=== PATIENT | female | born 1990 | race Caucasian/White ===

== ENCOUNTER 2017-04-17 00:28 | Inpatient (IN) | payer SELFPAY ==
[2017-04-17] VITALS (8 sets, daily range): BP systolic 107–126; BP diastolic 59–68; PULSE 70–95; RESP 18–20; TEMP 98.1–98.9; O2SAT 20–100
[~2017-04-17] VITALS: Ht 170.2 cm; Wt 73.0 kg
[~2017-04-17 00:28] MED LIST: Z.0.NO CURRENT MEDS
[2017-04-17] MEDS ORDERED: PROCHLORPERAZINE INJ 10 MG/2 ML VIAL IV PUSH ONE (00:45)
[2017-04-17] MEDS ORDERED: SODIUM CHLORIDE 0.9% FLUSH 10 ML FLUSH IVF PRN (00:45)
[2017-04-17] MEDS ORDERED: diphenhydrAMINE HCL 50 MG/ML VIAL IV PUSH ONE (00:45)
--- NOTE | 2017-04-17 00:50 | PD ---
HPI Chief Complaint: Syncope/Near-Syncope Time Seen by Provider: 00:34 Travel History International Travel<30 days: No Contact w/Intl Traveler<30days: No Traveled to known affect area: No History of Present Illness HPI patient is a 26-year-old female who identifies is male presents emergency department for evaluation of right ear pain. Patient apparently has been having ear pain and headache for the past 2-3 days, this caused her to become dizzy and fall tonight impacting her right side of her head and having loss of consciousness. No chest pain or shortness of breath, denies his mentation of the right ear, denies any cough congestion runny nose. PFSH Past Medical History Autoimmune Disease: No Blood Disorders: No Cardiovascular Problems: No Diminished Hearing: No Genitourinary: No Headaches: No Musculoskeletal: Yes Neurologic: No Respiratory: No Migraines: No Seizures: No Sickle Cell Disease: No ?: Unknown LMP: "Couple months ago" Past Surgical History Abdominal Surgery: No Cardiac Surgery: No Ear Surgery: No Endocrine Surgery: No Eye Surgery: No Genitourinary Surgery: No Gynecologic Surgery: No Neurologic Surgery: No Oral Surgery: No Thoracic Surgery: No Social History Alcohol Use: No Tobacco Use: Yes Substance Use: No Allergies-Medications (Allergen,Severity, Reaction): Coded Allergies: No Known Allergies (Verified Allergy, Unknown, 04/17/17) Reported Meds & Prescriptions Reported Meds & Active Scripts Active No Active Prescriptions or Reported Medications Review of Systems Except as stated in HPI: all other systems reviewed are Neg Physical Exam Narrative GENERAL: Well-developed well-nourished, appears uncomfortable but nontoxic. SKIN: Focused skin assessment warm/dry. There is contusion behind the right ear with some minimal swelling, no mastoid tenderness. HEAD: Atraumatic. Normocephalic. EYES: Pupils equal and round. No scleral icterus. No injection or drainage. ENT: No nasal bleeding or discharge. Mucous membranes pink and moist. Left TM clear, right TM does have hemotympanum. There is also some dried blood in the ear canal. NECK: Trachea midline. No JVD. CARDIOVASCULAR: Regular rate and rhythm. No murmur appreciated. RESPIRATORY: No accessory muscle use. Clear to auscultation. Breath sounds equal bilaterally. GASTROINTESTINAL: Abdomen soft, non-tender, nondistended. Hepatic and splenic margins not palpable. MUSCULOSKELETAL: No obvious deformities. No clubbing. No cyanosis. No edema. NEUROLOGICAL: Awake and alert. No obvious cranial nerve deficits. Motor grossly within normal limits. Normal speech. PSYCHIATRIC: Appropriate mood and affect; insight and judgment normal. Data Data Last Documented VS Vital Signs Date Time Temp Pulse Resp B/P (MAP) Pulse Ox O2 Delivery O2 Flow Rate FiO2 04/17/17 02:19 72 20 123/63 (83) 100 04/17/17 01:14 98.1 Orders Orders Urinalysis - C+S If Indicated (04/17/17 00:32) Ed Urine Pregnancytest Poc (04/17/17 00:32) Electrocardiogram (04/17/17 00:42) Complete Blood Count With Diff (04/17/17 00:42) Comprehensive Metabolic Panel (04/17/17 00:42) Ct Brain W/O Iv Contrast(Rout) (04/17/17 00:42) Ct Cerv Spine W/O Contrast (04/17/17 00:42) Ecg Monitoring (04/17/17 00:42) Iv Access Insert/Monitor (04/17/17 00:42) Oximetry (04/17/17 00:42) Sodium Chloride 0.9% Flush (Ns Flush) (04/17/17 00:45) Act Partial Throm Time (Ptt) (04/17/17 00:42) Prothrombin Time / Inr (Pt) (04/17/17 00:42) Diphenhydramine Inj (Benadryl Inj) (04/17/17 00:45) Prochlorperazine Inj (Compazine Inj) (04/17/17 00:45) Apply Cervical Collar (04/17/17 00:42) Ct Facial Bones W/O Iv Cont (04/17/17 ) Admit Order (Ed Use Only) (04/17/17 ) Labs Laboratory Tests Test 04/17/17 00:50 White Blood Count 12.9 TH/MM3 Red Blood Count 4.53 MIL/MM3 Hemoglobin 13.5 GM/DL Hematocrit 42.3 % Mean Corpuscular Volume 93.4 FL Mean Corpuscular Hemoglobin 29.8 PG Mean Corpuscular Hemoglobin Concent 31.9 % Red Cell Distribution Width 12.2 % Platelet Count 143 TH/MM3 Mean Platelet Volume 10.6 FL Neutrophils (%) (Auto) 86.0 % Lymphocytes (%) (Auto) 7.8 % Monocytes (%) (Auto) 5.3 % Eosinophils (%) (Auto) 0.1 % Basophils (%) (Auto) 0.8 % Neutrophils # (Auto) 11.1 TH/MM3 Lymphocytes # (Auto) 1.0 TH/MM3 Monocytes # (Auto) 0.7 TH/MM3 Eosinophils # (Auto) 0.0 TH/MM3 Basophils # (Auto) 0.1 TH/MM3 CBC Comment DIFF FINAL Differential Comment Prothrombin Time 10.6 SEC Prothromb Time International Ratio 1.0 RATIO Activated Partial Thromboplast Time 23.8 SEC Blood Urea Nitrogen 8 MG/DL Creatinine 0.76 MG/DL Random Glucose 136 MG/DL Total Protein 7.8 GM/DL Albumin 4.2 GM/DL Calcium Level 9.2 MG/DL Alkaline Phosphatase 58 U/L Aspartate Amino Transf (AST/SGOT) 16 U/L Alanine Aminotransferase (ALT/SGPT) 20 U/L Total Bilirubin 0.5 MG/DL Sodium Level 137 MEQ/L Potassium Level 3.3 MEQ/L Chloride Level 101 MEQ/L Carbon Dioxide Level 26.6 MEQ/L Anion Gap 9 MEQ/L Estimat Glomerular Filtration Rate 91 ML/MIN [facility] Medical Decision Making Medical Screen Exam Complete: Yes Emergency Medical Condition: Yes Differential Diagnosis Basilar skull fracture, mastoiditis is a possibility but seems unlikely, hemorrhagic otitis media, Narrative Course Patient was roomed in emergency department, hot history of ear pain and dizziness for the past 2-3 days prior to presentation then had a fall and possible loss of consciousness after the fall at about 2100 prior to presentation. Patient does have hemotympanum and a little dried blood in the external ear canal as well. She has a hematoma behind her right ear concerning for basilar skull fracture. Patient underwent CAT scan in of her head which did confirm a temporal bone fracture and parietal bone fracture of the skull. No intracranial abnormality observed. Radiologist also commented that there was air in the subcutaneous cutaneous tissues tracking down towards the TMJ on the right, unclear etiology, could represent open fracture but I doubt it. Patient will be started on antibiotics regardless. Patient was discussed with Dr. Dee for admission and he is agreeable. Given her neurologic status completely intact and she can go to the floor. Reexamined and patient does not have any evidence of injury to the chest abdomen pelvis or extremities. Last [address] 12/13/17 0042 Signed Impressions: Service Date/Time: Monday, April 17, 2017 01:40 - CONCLUSION: 1. No evidence of intracranial or extra-axial blood. 2. Nondisplaced fracture of the right temporal and inferior parietal bone. 3. Deep soft tissue gas tracking along the right styloid. May consider performing CT facial bones to evaluate integrity of the right mandible. 4. Opacified right sphenoid and scattered areas of mucosal thickening in the ethmoid sinuses. Tang Stein MD Cervical Spine CT 04/17/1741 Signed Impressions: Service Date/Time: Monday, April 17, 2017 01:40 - CONCLUSION: 1. No evidence of compression deformity or spondylolisthesis. 2. Deep soft tissue gas about the right mandible and styloid. May consider performing CT facial bones to evaluate integrity of the mandible. Tang Stein MD After Benadryl and Compazine the patient is feeling much better, sleeping soundly on reassessment but easily aroused. Discussed the results with her and recommended admission for neurosurgical consultation and she is agreeable. Diagnosis Primary Impression: Skull fracture Qualified Codes: S02.0XXA - Fracture of vault of skull, initial encounter for closed fracture Admitting Information Admitting Physician Requests: Admit Scripts No Active Prescriptions or Reported Meds Condition: Stable Binh Giang MD Apr 17, 2017 00:50
[2017-04-17 00:56] LABS: AUTOMATED NEUTROPHIL # 11.1 TH/MM3 (1.8-7.7); BASOPHIL # 0.1 TH/MM3 (0-0.2); BASOPHIL % 0.8 % (0.0-2.0); EOSINOPHIL % 0.1 % (0.0-4.0); HEMATOCRIT 42.3 % (35.0-46.0); LYMPH % 7.8 % (9.0-44.0); MEAN CELL VOLUME 93.4 FL (80.0-100.0); MEAN CORPUSCULAR HEMOGLOBIN 29.8 PG (27.0-34.0); MEAN CORPUSCULAR HGB CONC 31.9 % (32.0-36.0); MONO % 5.3 % (0.0-8.0); PLATELET COUNT 143 TH/MM3 (150-450); RED BLOOD COUNT 4.53 MIL/MM3 (4.00-5.30); RED CELL DISTRIBUTION WIDTH 12.2 % (11.6-17.2); WHITE BLOOD COUNT 12.9 TH/MM3 (4.0-11.0)
[2017-04-17 00:57] LABS: HEMO FLAGS DIFF FINAL
[2017-04-17 01:03] LABS: CHLORIDE 101 MEQ/L (98-107); POTASSIUM 3.3 MEQ/L (3.5-5.1); SODIUM (NA) 137 MEQ/L (136-145)
[2017-04-17 01:07] LABS: ANION GAP 9 MEQ/L (5-15); BICARBONATE 26.6 MEQ/L (21.0-32.0); BLOOD UREA NITROGEN 8 MG/DL (7-18)
[2017-04-17 01:09] LABS: APTT (PATIENT) 23.8 SEC (24.3-30.1); PROTHROMBIN TIME - PATIENT 10.6 SEC (9.8-11.6)
[2017-04-17 01:10] LABS: ALT (GPT) 20 U/L (10-53); AST (GOT) 16 U/L (15-37); GLOMERULAR FILTRATION RATE 91 ML/MIN (>89)
[2017-04-17 01:12] LABS: TOTAL BILIRUBIN ADULT 0.5 MG/DL (0.2-1.0)
[2017-04-17 01:13] LABS: ALKALINE PHOSPHATASE 58 U/L (45-117)
--- NOTE | 2017-04-17 02:39 | RADRPT ---
EXAM DATE/TIME: 04/17/2017 01:40 [facility] COMPARISON: CT CERVICAL SPINE W/O CONTRAST, April 17, 2017, 1:40. INDICATIONS : Trauma. Dizziness. Cephalgia. Syncope. Loss of consciousness. RADIATION DOSE: 56.32 CTDIvol (mGy) MEDICAL HISTORY : None SURGICAL HISTORY : None. ENCOUNTER: Initial ACUITY: 1 day PAIN SCALE: 8/10 LOCATION: Bilateral cranial TECHNIQUE: Multiple contiguous axial images were obtained of the head. Using automated exposure control and adj ustment of the mA and/or kV according to patient size, radiation dose was kept as low as reasonably a chievable to obtain optimal diagnostic quality images. DICOM format image data is available electro nically for review and comparison. FINDINGS: CEREBRUM: The ventricles are normal for age. No evidence of midline shift, mass lesion, hemorrhage or acute in farction. No extra-axial fluid collections are seen. POSTERIOR FOSSA: The cerebellum and brainstem are intact. The 4th ventricle is midline. The cerebellopontine angle i s unremarkable. EXTRACRANIAL: The visualized portion of the orbits is intact. Symmetric aeration of the mastoids. There is some s oft tissue gas which tracks along the right styloid and posterior to the mandibular condyle. There i s opacification of the right sphenoid sinus and some mild opacities in the ethmoid sinuses. SKULL: There is a nondisplaced fracture of the right parietal extends from mid convexity down into the later al right temporal bone in the middle cranial fossa. CONCLUSION: 1. No evidence of intracranial or extra-axial blood. 2. Nondisplaced fracture of the right temporal and inferior parietal bone. 3. Deep soft tissue gas tracking along the right styloid. May consider performing CT facial bones to evaluate integrity of the right mandible. 4. Opacified right sphenoid and scattered areas of mucosal thickening in the ethmoid sinuses. Tang Stein MD on April 17, 2017 at 2:27 Board Certified Radiologist. This report was verified electronically.
--- NOTE | 2017-04-17 02:42 | RADRPT ---
EXAM DATE/TIME: 04/17/2017 01:40 [facility] COMPARISON: No previous studies available for comparison. INDICATIONS : Trauma. Fall. Neck pain. RADIATION DOSE: 24.83 CTDIvol (mGy) MEDICAL HISTORY : None SURGICAL HISTORY : None. ENCOUNTER: Initial ACUITY: 1 day PAIN SCALE: 8/10 LOCATION: Bilateral neck TECHNIQUE: Volumetric scanning of the cervical spine was performed. Multiplanar reconstructions in the sagittal, coronal and oblique axial planes were performed. Using automated exposure control and adjustment o f the mA and/or kV according to patient size, radiation dose was kept as low as reasonably achievable to obtain optimal diagnostic quality images. DICOM format image data is available electronically f or review and comparison. FINDINGS: There is normal alignment of the vertebral bodies of the cervical spine. Vertebral body height is ma intained. A sterile limits or normal alignment without evidence of locked or perched facets. Atlant oaxial articulation is intact. The spinous processes are intact. There is deep soft tissue gas seen about the styloid process and medial to the body of the mandible; the mandible is incompletely included in the [id number].. C2-C3: No fracture seen. The bony neural foramina are patent. C3-C4: No fracture seen. The bony neural foramina are patent. C4-C5: No fracture seen. The bony neural foramina are patent. C5-C6: No fracture seen. The bony neural foramina are patent. C6-C7: No fracture seen. The bony neural foramina are patent. C7-T1: No fracture seen. The bony neural foramina are patent. CONCLUSION: 1. No evidence of compression deformity or spondylolisthesis. 2. Deep soft tissue gas about the right mandible and styloid. May consider performing CT facial bone s to evaluate integrity of the mandible. Tang Stein MD on April 17, 2017 at 2:38 Board Certified Radiologist. This report was verified electronically.
[2017-04-17] MEDS ORDERED: NALOXONE HCL 0.4 MG/ML AMP IV PUSH PRN (03:00)
[2017-04-17] MEDS ORDERED: ACETAMINOPHEN/HYDROcodone 325 MG/5 MG TAB PO PRN (03:00)
[2017-04-17] MEDS ORDERED: ONDANSETRON HCL 4 MG/2 ML VIAL IV PUSH PRN (03:00)
[2017-04-17] MEDS ORDERED: MORPHINE SULFATE 4 MG/ML INJ IV PUSH PRN (03:00)
[2017-04-17] MEDS ORDERED: cefTRIAXone INJ 2,000 MG in SODIUM CHLORIDE 0.9% INJ 100 ML IV ONE (03:15)
--- NOTE | 2017-04-17 03:23 | RADRPT ---
EXAM DATE/TIME: 04/17/2017 02:48 [facility] COMPARISON: No previous studies available for comparison. INDICATIONS : Trauma. Fall. Evaluate for right mandible fracture. RADIATION DOSE: 29.85 CTDIvol (mGy) MEDICAL HISTORY : None SURGICAL HISTORY : None. ENCOUNTER: Initial ACUITY: 1 day PAIN SCORE: 9/10 LOCATION: Bilateral facial TECHNIQUE: Volumetric scanning of the facial bones was performed. Using automated exposure control and adjustme nt of the mA and/or kV according to patient size, radiation dose was kept as low as reasonably achiev able to obtain optimal diagnostic quality images. DICOM format image data is available electronicall y for review and comparison. FINDINGS: There is deep soft tissue gas outlining the right lateral pterygoid muscle and tracking along the med ial body of the mandible and styloid process. The mandible is intact without evidence of fracture. The mandibular condyle is normally situated within the condylar fossa. There is opacification of the right sphenoid sinus and a few opacified ethmoid air cells. Pneumatiza tion of the middle turbinates, right larger than left. The frontals and maxillary sinuses are clear. Zygomatic arches, maxilla, nasal bone and pterygoid plates are intact. There is a nondisplaced fracture of the posterior right temporal bone in the middle cranial fossa. N o evidence of pneumocephalus. The mastoids are symmetrically aerated. CONCLUSION: 1. Right sided deep soft tissue gas outlining the lateral pterygoid muscle. No radiopaque foreign luanne dies. 2. The right mandible is intact; no fracture seen. 3. Nondisplaced right temporal bone fracture in the posterior middle cranial fossa. 4. Opacified right sphenoid and scattered opacified ethmoids. Tang Stein MD on April 17, 2017 at 3:08 Board Certified Radiologist. This report was verified electronically.
[2017-04-17] MEDS: 1/2 NS + KCL 20 MEQ INJ 1,000 ML IV SCH ×2 (04:26→14:59)
[2017-04-17 05:05] LABS: BLOOD, URINE NEG (NEG); GLUCOSE,URINE NEG (NEG); KETONE, URINE 15 mg/dL (NEG); NITRITE,URINE NEG (NEG); PH, URINE 5.5 (5.0-8.5)
[2017-04-17 05:15] LABS: URINE COLOR YELLOW (YELLW/STRAW)
[2017-04-17 05:16] LABS: MUCUS URINE MOD /lpf (OCC)
[2017-04-17 05:17] LABS: BACTERIA, URINE OCC /hpf; COMMENT (UR) CULT NOT INDICATED; CULTURE IF INDICATED CULT NOT INDICATED; WBC, URINE 0-2 /hpf (0-5)
[2017-04-17] MEDS: ACETAMINOPHEN/HYDROcodone 325 MG/10 MG TAB PO PRN ×2 (09:26→14:58)
--- NOTE | 2017-04-17 15:23 | EKG ---
Date Performed: 04/17/2017 Time Performed: 00:57:56 PTAGE: 26 years EKG: Sinus rhythm NORMAL ECG PREVIOUS TRACING : 03/14/2006 12.12 DOCTOR: Jay Jay Coon Interpretating Date/Time 04/17/2017 15:22:24
--- NOTE | 2017-04-17 15:54 | HHI.DS ---
Lauri Hayden [facility] 04/17/17 1554: Discharge Summary Admission Date Apr 17, 2017 at 02:55 Discharge Date: Apr 17, 2017 Admitting Diagnosis Skull Fracture. (1) Skull fracture Diagnosis: Principal ICD Code: S02.91XA - Unspecified fracture of skull, initial encounter for closed fracture Status: Acute (2) Otitis media Diagnosis: Secondary ICD Code: H66.90 - Otitis media, unspecified, unspecified ear CBC/BMP: 04/17/17 0050 04/17/17 0050 Significant Findings Laboratory Tests Test 04/17/17 00:50 04/17/17 04:55 White Blood Count 12.9 TH/MM3 (4.0-11.0) Mean Corpuscular Hemoglobin Concent 31.9 % (32.0-36.0) Platelet Count 143 TH/MM3 (150-450) Neutrophils (%) (Auto) 86.0 % (16.0-70.0) Lymphocytes (%) (Auto) 7.8 % (9.0-44.0) Neutrophils # (Auto) 11.1 TH/MM3 (1.8-7.7) Activated Partial Thromboplast Time 23.8 SEC (24.3-30.1) Random Glucose 136 MG/DL (74-106) Potassium Level 3.3 MEQ/L (3.5-5.1) Urine Ketones 15 mg/dL (NEG) Urine Squamous Epithelial Cells 6-8 /hpf (0-5) Urine Bacteria OCC /hpf (NONE) Urine Mucus MOD /lpf (OCC) Imaging Recent Impressions Head CT 04/17/1741 Signed Impressions: Service Date/Time: Monday, April 17, 2017 01:40 - CONCLUSION: 1. No evidence of intracranial or extra-axial blood. 2. Nondisplaced fracture of the right temporal and inferior parietal bone. 3. Deep soft tissue gas tracking along the right styloid. May consider performing CT facial bones to evaluate integrity of the right mandible. 4. Opacified right sphenoid and scattered areas of mucosal thickening in the ethmoid sinuses. Tang Stein MD Cervical Spine CT 04/17/1741 Signed Impressions: Service Date/Time: Monday, April 17, 2017 01:40 - CONCLUSION: 1. No evidence of compression deformity or spondylolisthesis. 2. Deep soft tissue gas about the right mandible and styloid. May consider performing CT facial bones to evaluate integrity of the mandible. Tang Stein MD Maxillofacial CT 04/17/17 0000 Signed Impressions: Service Date/Time: Monday, April 17, 2017 02:48 - CONCLUSION: 1. Right sided deep soft tissue gas outlining the lateral pterygoid muscle. No radiopaque foreign bodies. 2. The right mandible is intact; no fracture seen. 3. Nondisplaced right temporal bone fracture in the posterior middle cranial fossa. 4. Opacified right sphenoid and scattered opacified ethmoids. Tang Stein MD PE at Discharge GENERAL: Awake & alert, readily interacts, affect slightly flat, no apparent distress. SKIN: Warm, dry & intact w/o any evident rashes, ulceration or other lesions noted. HEENT: Normocephalic, TTP to the right post-auricular area & right superior jaw. PERRLA 3 mm brisk, EOMI. Left TM pearly werner w/o any evident drainage, Right TM w/apparent effusion and slight bulging, dried blood in canal. Nares moist & pink. MMM & pink, no oral lesions, tongue midline to protrusion. RESPIRATORY: CTAB w/o W/R/R, equal excursion, nonlaboured, on RA. CARDIOVASCULAR: S1S2 w/RRR w/o M/G/R, radial & pedal pulses 2+ bilaterally, no pedal edema. GASTROINTESTINAL: Abdomen soft, nontender, positive bowel sounds. MUSCULOSKELETAL: OH w/o difficulty, no evident deformity or clubbing. NEUROLOGICAL: AAOx3. Speech clear & appropriate. Follows simple commands w/o difficulty. CN II-XII appear grossly intact. Sensation intact to light touch to all extremities. Motor strength 5/5 to all major flexion & extension muscle groups except for the right ??? which is 4/5 chronically secondary to an old injury. Hospital Course This 26-year-old female who identifies as a male who presented to the emergency department early this morning for evaluation of right ear pain. The patient reports having had the ear pain for the past 2 to 3 days. The patient became dizzy during the night and fell striking the right side of the body and had a loss of consciousness. At presentation the patient complained of pain to the right head and right side of the head. The patient denied any chest pain; shortness of breath; dizziness, numbness, tingling or weakness to the extremities; cough; congestion or runny nose. Imaging demonstrated nondisplaced right temporal and right parietal skull fractures. Also noted was deep tissue gas along the right lateral pterygoid muscle. There was not any evident intracranial or extra-axial bleeding noted. The patient was evaluated by Physical Therapy who felt that the patient did not require any skilled needs at discharge. This afternoon the patient has some pain to the right upper jaw when seen. Pt Condition on Discharge: Good Discharge Disposition: Discharge Home Discharge Instructions DIET: Follow Instructions for: As Tolerated, No Restrictions ACTIVITIES You can perform: Full Weight Bearing Activities to Avoid: Contact Sports, Lifting/Bending, Strenuous Activity ADDITIONAL Activity Instructio: You may shower but avoid getting water in the right ear. Additional Information Follow up in the office in 1 week. Call for any drainage from the right ear, fevers or other concerns. Leighton Dee MD 04/17/17 1924: Discharge Summary CBC/BMP: 04/17/17 0050 04/17/17 0050 Attending Statement The exam, history, and the medical decision-making described in the above note were completed with the assistance of the mid-level provider. I reviewed and agree with the findings presented. I attest that I had a [id number] encounter with the patient on the same day, and personally performed and documented my assessment and findings in the medical record. Lauri Hayden Apr 17, 2017 15:54 Leighton Dee MD Apr 17, 2017 19:24
--- NOTE | 2017-04-17 16:11 | HHI.DCPOC ---
Discharge Care Plan Diagnosis: (1) Skull fracture (2) Otitis media Your Health Problems Are: Cough Additional Problems Right-sided head and jaw pain Goals to Promote Your Health * To prevent worsening of your condition and complications * To maintain your health at the optimal level Avoid any bending over, lifting, reaching, pulling, pushing or other strenuous activity. You may shower but avoid any water getting into the right ear. Take the pain medication as directed. Take all of the antibiotic as directed. Follow up in 1 week in the office. Call for any fevers, drainage from the right ear or for any other concerns. Directions to Meet Your Goals Take your medications as prescribed Follow your dietary instruction Follow activity as directed Avoid any bending over, lifting, reaching, pulling, pushing or other strenuous activity. You may shower but avoid any water getting into the right ear. Take the pain medication as directed. Take all of the antibiotic as directed. Follow up in 1 week in the office. Call for any fevers, drainage from the right ear or for any other concerns. Keep your appointments as scheduled Take your immunizations and boosters as scheduled If your symptoms worsen call your PCP, if no PCP go to Urgent Care Center or Emergency Room Smoking is Dangerous to Your Health. Avoid second hand smoke Call the 24-hour hour crisis hotline for domestic abuse at Lauri Hayden Apr 17, 2017 16:11 Leighton Dee MD Apr 17, 2017 19:24
[2017-04-17] MEDS ORDERED: BENZ100 PO (16:19)
[2017-04-17] MEDS ORDERED: AUGM875T3 PO (16:19)
[2017-04-17] MEDS ORDERED: HYDR-3516 PO (16:19)
--- NOTE | 2017-04-17 19:24 | HHI.HP ---
HPI Service Neurosurgery Primary Care Physician No Primary Care Physician Chief Complaint: Headache following fall History of Present Illness Patient is a 26-year-old female who complains of approximately 5 days of a sore throat with mild productive cough followed by more recently 3 days of headache and dizziness and earache. She has had no definite drainage from the ear. She states that due to persistent dizziness she passed out approximately 9:00 last evening,. With some brief loss of consciousness. No seizure activity reported. She presented to the emergency room today due to persistent headache and right ear pain. She has had no nausea or vomiting. No definite fevers or chills. Review of Systems Constitutional: COMPLAINS OF: Fatigue, Dizziness, DENIES: Fever Eyes: DENIES: Blurred vision, Diplopia Ears, nose, mouth, throat: COMPLAINS OF: Throat pain, Ear Pain, Sinus Pain, DENIES: Tinnitus, Hearing loss, Vertigo Respiratory: COMPLAINS OF: Cough, Sputum production, DENIES: Shortness of breath Cardiovascular: COMPLAINS OF: Chest pain, Palpitations Gastrointestinal: DENIES: Abdominal pain, Diarrhea, Nausea, Vomiting Musculoskeletal: DENIES: Joint pain, Muscle aches Hematologic/lymphatic: DENIES: Bruising Neurologic: COMPLAINS OF: Headache, DENIES: Abnormal gait Psychiatric: DENIES: Anxiety, Confusion Past Family Social History Allergies: Coded Allergies: No Known Allergies (Verified Allergy, Unknown, 04/17/17) Past Medical History Denies cardiac, pulmonary disease, diabetes or hypertension. Past Surgical History Surgery for lower extremity fracture in 2006. Reported Medications Reported Meds & Active Scripts Active Tessalon Perles (Benzonatate) 100 Mg Cap 100 Mg PO TID PRN Augmentin (Amoxicillin-Clavulanate) 875-125 Mg Tab 1 Tab PO BID Hydrocodone-Acetamin 5-325 mg (Hydrocodone/Acetaminophen) 5 Mg-325 Mg Tablet 2 Tab PO Q4H Take 1 tablet for pain scale of 3 to 6. Take 2 tablets for pain scale of 7 to 10. Family History Negative cardiac, pulmonary disease, diabetes Social History Smokes 1 pack cigarettes a day. No significant alcohol use. No illicit drug use reported Physical Exam Vital Signs Vital Signs Date Time Temp Pulse Resp B/P (MAP) Pulse Ox O2 Delivery O2 Flow Rate FiO2 04/17/17 15:36 98.9 95 18 113/60 (77) 99 04/17/17 11:22 98.1 81 18 118/59 (78) 99 04/17/17 06:41 98.7 71 18 109/59 (76) 97 04/17/17 05:22 74 20 126/64 (84) 98 04/17/17 03:59 73 20 118/64 (82) 98 04/17/17 02:19 72 20 123/63 (83) 100 04/17/17 01:14 98.1 70 20 111/63 (79) 100 04/17/17 01:14 81 20 100 04/17/17 00:37 98.1 90 20 107/68 (81) 100 Physical Exam GENERAL: This is a well-nourished, well-developed patient, appears moderately uncomfortable during the examination SKIN: No abrasions, contusion, rash noted. Skin warm and dry. HEAD: Atraumatic. Normocephalic. No temporal or scalp tenderness. EYES: Sclerae are clear and nonicteric ENT: No facial edema or ecchymosis. No periorbital edema. No CSF otorrhea or rhinorrhea. No palpable facial fracture or deformity. She has a right hemotympanum with possibly some CSF behind the tympanic membrane. Mild erythema and edema in the right external auditory canal. Left tympanic membrane is normal NECK: Trachea midline. No cervical spine tenderness. CARDIOVASCULAR: Regular rate and rhythm without murmurs, gallops, or rubs. RESPIRATORY: Clear to auscultation. Breath sounds equal bilaterally. No wheezes , rales, or rhonchi. GASTROINTESTINAL: Abdomen soft, non-tender, nondistended. No hepato-splenomegaly , or palpable masses. No guarding. MUSCULOSKELETAL: Extremities without cyanosis, or edema. No joint tenderness, or edema noted. No calf tenderness. Dorsalis pedis pulses 2+ bilateral NEUROLOGICAL: Awake and alert Oriented X 3 Speech is clear Conversant and appropriate Follow simple commands well Answers questions appropriately Reasonable judgment and insight Recent and remote memory are intact No evidence of anxiety or depression Pupils are equal and reactive to accommodation. Extra-ocular movements, visual cote to confrontation, facial sensorimotor, tongue, palate, sternocleidomastoid testing, hearing to finger rub testing, and bilateral shoulder shrug are all intact. Sensation is intact to light touch in all extremities Strength normal major flexion and extension groups all extremities Tae's absent bilaterally No ankle clonus Plantar responses absent bilateral Fine motor movements intact upper extremities Laboratory Laboratory Tests Test 04/17/17 00:50 04/17/17 04:55 White Blood Count 12.9 Red Blood Count 4.53 Hemoglobin 13.5 Hematocrit 42.3 Mean Corpuscular Volume 93.4 Mean Corpuscular Hemoglobin 29.8 Mean Corpuscular Hemoglobin Concent 31.9 Red Cell Distribution Width 12.2 Platelet Count 143 Mean Platelet Volume 10.6 Neutrophils (%) (Auto) 86.0 Lymphocytes (%) (Auto) 7.8 Monocytes (%) (Auto) 5.3 Eosinophils (%) (Auto) 0.1 Basophils (%) (Auto) 0.8 Neutrophils # (Auto) 11.1 Lymphocytes # (Auto) 1.0 Monocytes # (Auto) 0.7 Eosinophils # (Auto) 0.0 Basophils # (Auto) 0.1 CBC Comment DIFF FINAL Differential Comment Prothrombin Time 10.6 Prothromb Time International Ratio 1.0 Activated Partial Thromboplast Time 23.8 Blood Urea Nitrogen 8 Creatinine 0.76 Random Glucose 136 Total Protein 7.8 Albumin 4.2 Calcium Level 9.2 Alkaline Phosphatase 58 Aspartate Amino Transf (AST/SGOT) 16 Alanine Aminotransferase (ALT/SGPT) 20 Total Bilirubin 0.5 Sodium Level 137 Potassium Level 3.3 Chloride Level 101 Carbon Dioxide Level 26.6 Anion Gap 9 Estimat Glomerular Filtration Rate 91 Urine Color YELLOW Urine Turbidity SLIGHT Urine pH 5.5 Urine Specific [place] 1.016 Urine Protein NEG Urine Glucose (UA) NEG Urine Ketones 15 Urine Occult Blood NEG Urine Nitrite NEG Urine Bilirubin NEG Urine Leukocyte Esterase NEG Urine WBC 0-2 Urine Squamous Epithelial Cells 6-8 Urine Amorphous Sediment FEW Urine Bacteria OCC Urine Mucus MOD Microscopic Urinalysis Comment CULT NOT INDICATED Result Diagram: 04/17/17 0050 04/17/17 0050 Imaging 04/17/17 CT scan head images are reviewed by the undersigned. The study reveals a nondisplaced right temporal and inferior parietal bone fracture. No pneumocephalus or hydrocephalus. No parietal contusion. CT scan of the cervical spine reveals no evidence of acute fracture subluxation. CT scan of the maxillofacial region reveals partial opacification of the sphenoid and ethmoid sinuses. Head CT 04/17/17 0042 Signed Impressions: Service Date/Time: Monday, April 17, 2017 01:40 - CONCLUSION: 1. No evidence of intracranial or extra-axial blood. 2. Nondisplaced fracture of the right temporal and inferior parietal bone. 3. Deep soft tissue gas tracking along the right styloid. May consider performing CT facial bones to evaluate integrity of the right mandible. 4. Opacified right sphenoid and scattered areas of mucosal thickening in the ethmoid sinuses. Tang Stein MD Cervical Spine CT 04/17/17 0042 Signed Impressions: Service Date/Time: Monday, April 17, 2017 01:40 - CONCLUSION: 1. No evidence of compression deformity or spondylolisthesis. 2. Deep soft tissue gas about the right mandible and styloid. May consider performing CT facial bones to evaluate integrity of the mandible. Tang Stein MD Maxillofacial CT 04/17/17 0000 Signed Impressions: Service Date/Time: Monday, April 17, 2017 02:48 - CONCLUSION: 1. Right sided deep soft tissue gas outlining the lateral pterygoid muscle. No radiopaque foreign bodies. 2. The right mandible is intact; no fracture seen. 3. Nondisplaced right temporal bone fracture in the posterior middle cranial fossa. 4. Opacified right sphenoid and scattered opacified ethmoids. MD Aditi Sandoval VTE Risk Assessment Caprini VTE Risk Assessment: No/Low Risk (score <= 1) Caprini Risk Assessment Model Point Value = 1 Point Value = 2 Point Value = 3 Point Value = 5 Age 41-60 Minor surgery BMI > 25 kg/m2 Swollen legs Varicose veins or History of unexplained or recurrent spontaneous Oral contraceptives or hormone replacement Sepsis (< 1 month) Serious lung disease, including pneumonia (< 1 month) Abnormal pulmonary function Acute myocardial infarction Congestive heart failure (< 1 month) History of inflammatory bowel disease Medical patient at bed rest Age 61-74 Arthroscopic surgery Major open surgery (> 45 min) Laparoscopic surgery (> 45 min) Malignancy Confined to bed (> 72 hours) Immobilizing plaster cast Central venous access Age >= 75 History of VTE Family history of VTE Factor V Leiden Prothrombin [id number] Lupus anticoagulant Anticardiolipin antibodies Elevated serum homocysteine Heparin-induced thrombocytopenia Other congenital or acquired thrombophilia Stroke (< 1 month) Elective arthroplasty Hip, pelvis, or leg fracture Acute spinal cord injury (< 1 month) Prophylaxis Regimen Total Risk Factor Score Risk Level Prophylaxis Regimen 0-1 Low Early ambulation 2 Moderate Order ONE of the following: *Sequential Compression Device (SCD) *Heparin 5000 units SQ BID 3-4 Higher Order ONE of the following medications: *Heparin 5000 units SQ TID *Enoxaparin/Lovenox 40 mg SQ daily (WT < 150 kg, CrCl > 30 mL/min) *Enoxaparin/Lovenox 30 mg SQ daily (WT < 150 kg, CrCl > 10-29 mL/min) *Enoxaparin/Lovenox 30 mg SQ BID (WT < 150 kg, CrCl > 30 mL/min) AND/OR *Sequential Compression Device (SCD) 5 or more Highest Order ONE of the following medications: *Heparin 5000 units SQ TID (Preferred with Epidurals) *Enoxaparin/Lovenox 40 mg SQ daily (WT < 150 kg, CrCl > 30 mL/min) *Enoxaparin/Lovenox 30 mg SQ daily (WT < 150 kg, CrCl > 10-29 mL/min) *Enoxaparin/Lovenox 30 mg SQ BID (WT < 150 kg, CrCl > 30 mL/min) AND *Sequential Compression Device (SCD) Assessment and Plan Assessment and Plan Impression: 1. Right temporal bone fracture 2. Right hemotympanum with probable CSF noted behind the tympanic membrane. No active CSF leakage noted. 3. Recent viral type syndrome. No definite syncopal episode Plan: Findings were discussed with the patient and her cota. We will have physical therapy see her to make sure that she is not excessively dizzy. She will be given a prescription for oral antibiotics and be seen back for outpatient follow-up the next week. Risk of CSF leakage including risk of meningitis fully discussed with the patient and her cota along with signs and symptoms to watch for. She acknowledges understanding of the above and wishes to discharge home today for outpatient follow-up. Leighton Dee MD Apr 17, 2017 19:24
== END 2017-04-17 18:22 | disposition home or self-care (01) | DRG 87 ==
LOC: PHED 00:28 → PHEDA 02:55 → NEPHCDU 05:41
PROVIDERS: ADMIT Neurological Surgery; ATTEND Neurological Surgery
DX: S02.19XA Other fracture of base of skull, initial encounter for closed fracture (principal); F17.210 Nicotine dependence, cigarettes, uncomplicated; S02.0XXA Fracture of vault of skull, initial encounter for closed fracture; W18.30XA Fall on same level, unspecified, initial encounter; H66.91 Otitis media, unspecified, right ear; R42 Dizziness and giddiness
CPT/HCPCS: 70450; 70486; 72125; 80053; 81001; 84703; 85025; 85610; 85730; 93005; J0696; J0780; J1200; J2270